=== PATIENT | male | born 1945 | race Caucasian/White ===

== ENCOUNTER → 2023-07-09 10:01 | Outpatient (REF) | payer OTHER, SELFPAY | LOC: RCS 10:01 | PROVIDERS: ATTENDING PHYSICIAN Internal Medicine Cardiovascular Disease; FAMILY PHYSICIAN Internal Medicine | DX: Z98.890 Other specified postprocedural states (principal) | CPT/HCPCS: 93306 ==

== ENCOUNTER → 2023-09-20 09:02 | Outpatient (REF) | payer OTHER, SELFPAY | LOC: PAVMRI 09:02 | PROVIDERS: ATTENDING PHYSICIAN Orthopaedic Surgery Orthopaedic Surgery of the Spine | DX: M54.16 Radiculopathy, lumbar region (principal) | CPT/HCPCS: 72148 ==

== ENCOUNTER → 2023-09-28 10:21 | Outpatient (REF) | payer OTHER, SELFPAY | LOC: EMG 10:21 | PROVIDERS: ATTENDING PHYSICIAN Orthopaedic Surgery Orthopaedic Surgery of the Spine; FAMILY PHYSICIAN Internal Medicine | DX: M54.16 Radiculopathy, lumbar region (principal) | CPT/HCPCS: 95886; 95911 ==

== ENCOUNTER → 2023-10-10 13:47 | Outpatient (REF) | payer OTHER, SELFPAY | LOC: HWRAD 13:47 | PROVIDERS: ATTENDING PHYSICIAN Registered Nurse; REFERRING PHYSICIAN Internal Medicine Gastroenterology | DX: I71.43 Infrarenal abdominal aortic aneurysm, without rupture (principal) | CPT/HCPCS: 76770 ==

== ENCOUNTER → 2023-11-30 09:48 | Outpatient (REF) | payer OTHER, SELFPAY | LOC: HWRAD 09:48 | PROVIDERS: ATTENDING PHYSICIAN Registered Nurse; FAMILY PHYSICIAN Internal Medicine | DX: R49.0 Dysphonia (principal); E03.9 Hypothyroidism, unspecified | CPT/HCPCS: 70491; Q9967 ==

== ENCOUNTER → 2024-03-05 12:04 | Outpatient (REF) | payer OTHER, SELFPAY | LOC: PAVMRI 12:04 | PROVIDERS: ATTENDING PHYSICIAN Internal Medicine Gastroenterology; FAMILY PHYSICIAN Internal Medicine | DX: K86.2 Cyst of pancreas (principal) | CPT/HCPCS: 74183; A9575 ==

== ENCOUNTER → 2024-04-23 13:15 | Outpatient (REF) | payer OTHER, SELFPAY | LOC: WOUND 13:15 | PROVIDERS: ATTENDING PHYSICIAN Surgery; FAMILY PHYSICIAN Internal Medicine | DX: L97.322 Non-pressure chronic ulcer of left ankle with fat layer exposed (principal); I48.91 Unspecified atrial fibrillation; Z79.01 Long term (current) use of anticoagulants | CPT/HCPCS: 97597; 99203 ==

== ENCOUNTER 2024-05-30 06:24 | Day surgery (SDC) | payer OTHER, SELFPAY ==
[2024-05-30 06:47] VITALS: BMI 19.6
[2024-05-30 06:50] VITALS: BMI 19.6
[2024-05-30 06:51] VITALS: BP 137/87
[2024-05-30 09:06] VITALS: BP 114/72
[2024-05-30 09:15] VITALS: BP 105/79
== END 2024-05-30 09:45 | disposition home or self-care (01) ==
LOC: SDS 06:24
PROVIDERS: ATTENDING PHYSICIAN Internal Medicine Gastroenterology
DX: K25.3 Acute gastric ulcer without hemorrhage or perforation (principal); K21.00 Gastro-esophageal reflux disease with esophagitis, without bleeding; K22.89 Other specified disease of esophagus; K86.2 Cyst of pancreas; Q45.3 Other congenital malformations of pancreas and pancreatic duct; R93.5 Abnormal findings on diagnostic imaging of other abdominal regions, including retroperitoneum; Z79.01 Long term (current) use of anticoagulants
CPT/HCPCS: 43238; 43239; 88305; 88342

== ENCOUNTER → 2024-08-28 08:12 | Outpatient (REF) | payer OTHER, SELFPAY | LOC: WOUND 08:12 | PROVIDERS: ATTENDING PHYSICIAN Surgery; FAMILY PHYSICIAN Internal Medicine | DX: L97.212 Non-pressure chronic ulcer of right calf with fat layer exposed (principal); L03.115 Cellulitis of right lower limb; I73.9 Peripheral vascular disease, unspecified; I87.2 Venous insufficiency (chronic) (peripheral) | CPT/HCPCS: 99204 ==

== ENCOUNTER → 2024-09-04 10:21 | Outpatient (REF) | payer OTHER, SELFPAY | LOC: WOUND 10:21 | PROVIDERS: ATTENDING PHYSICIAN Surgery; FAMILY PHYSICIAN Internal Medicine | DX: L97.212 Non-pressure chronic ulcer of right calf with fat layer exposed (principal); L03.115 Cellulitis of right lower limb; I73.9 Peripheral vascular disease, unspecified; I87.2 Venous insufficiency (chronic) (peripheral) | CPT/HCPCS: 99212 ==

== ENCOUNTER → 2024-09-11 06:55 | Outpatient (REF) | payer OTHER, SELFPAY | LOC: RAD 06:55 | PROVIDERS: ATTENDING PHYSICIAN Surgery; FAMILY PHYSICIAN Internal Medicine; OTHER PHYSICIAN Registered Nurse | DX: L97.212 Non-pressure chronic ulcer of right calf with fat layer exposed (principal); I73.9 Peripheral vascular disease, unspecified; I87.2 Venous insufficiency (chronic) (peripheral); R42 Dizziness and giddiness; M54.2 Cervicalgia; R11.10 Vomiting, unspecified | CPT/HCPCS: 70496; 70498; 93922; 93971; Q9967 ==

== ENCOUNTER → 2024-10-09 09:24 | Outpatient (REF) | payer OTHER, SELFPAY | LOC: RAD 09:24 | PROVIDERS: ATTENDING PHYSICIAN Internal Medicine Gastroenterology; FAMILY PHYSICIAN Internal Medicine | DX: R13.19 Other dysphagia (principal) | CPT/HCPCS: 74221 ==

== ENCOUNTER → 2024-12-11 11:27 | Outpatient (REF) | payer OTHER, SELFPAY | LOC: WOUND 11:27 | PROVIDERS: ATTENDING PHYSICIAN Surgery; FAMILY PHYSICIAN Internal Medicine | DX: L97.211 Non-pressure chronic ulcer of right calf limited to breakdown of skin (principal) | CPT/HCPCS: 99213 ==

== ENCOUNTER → 2024-12-18 11:01 | Outpatient (REF) | payer OTHER, SELFPAY | LOC: WOUND 11:01 | PROVIDERS: ATTENDING PHYSICIAN Surgery; FAMILY PHYSICIAN Internal Medicine | DX: L97.211 Non-pressure chronic ulcer of right calf limited to breakdown of skin (principal) | CPT/HCPCS: 11042; 11045 ==

== ENCOUNTER → 2024-12-25 09:23 | Outpatient (REF) | payer OTHER, SELFPAY | LOC: WOUND 09:23 | PROVIDERS: ATTENDING PHYSICIAN Surgery; FAMILY PHYSICIAN Internal Medicine | DX: L97.211 Non-pressure chronic ulcer of right calf limited to breakdown of skin (principal) | CPT/HCPCS: 99213 ==

== ENCOUNTER → 2025-01-16 09:34 | Outpatient (REF) | payer OTHER, SELFPAY | LOC: MRI 3T 09:34 | PROVIDERS: ATTENDING PHYSICIAN Internal Medicine Gastroenterology | DX: K86.2 Cyst of pancreas (principal) | CPT/HCPCS: 74183; A9575 ==

== ENCOUNTER → 2025-03-13 10:08 | Outpatient (REF) | payer OTHER, SELFPAY | LOC: RCS 10:08 | PROVIDERS: ATTENDING PHYSICIAN Internal Medicine Cardiovascular Disease; FAMILY PHYSICIAN Internal Medicine | DX: I48.0 Paroxysmal atrial fibrillation (principal); Z98.890 Other specified postprocedural states | CPT/HCPCS: 93306 ==

== ENCOUNTER → 2025-04-12 07:50 | Outpatient (REF) | payer OTHER, SELFPAY | LOC: HWRCS 07:50 | PROVIDERS: ATTENDING PHYSICIAN Internal Medicine Cardiovascular Disease; FAMILY PHYSICIAN Internal Medicine | DX: I48.0 Paroxysmal atrial fibrillation (principal); Z98.890 Other specified postprocedural states; R06.09 Other forms of dyspnea | CPT/HCPCS: 78452; 93017; A9500 ==